=== PATIENT | male | born 1985 | race Hispanic/Latino ===

== ENCOUNTER 2020-11-08 16:49 | Emergency (ER) | payer SELFPAY ==
[~2020-11-08] VITALS: Ht 162.6 cm; Wt 81.8 kg
[2020-11-08 18:30] VITALS: BP 131/89
== END 2020-11-08 18:30 | disposition home or self-care (01) | DRG 605 ==
LOC: ED 16:49
DX: S51.832A Puncture wound without foreign body of left forearm, initial encounter (principal); W60.XXXA Contact with nonvenomous plant thorns and spines and sharp leaves, initial encounter; Y93.H2 Activity, gardening and landscaping; Y92.007 Garden or yard of unspecified non-institutional (private) residence as the place of occurrence of the external cause